=== PATIENT | male | born 1960 | race Caucasian/White ===

== ENCOUNTER 2021-03-01 00:31 | Inpatient (IN) | payer OTHER, SELFPAY ==
[~2021-03-01] VITALS: Ht 172.7 cm; Wt 98.1 kg
[2021-03-01] VITALS (20 sets, daily range): BP systolic 125–148; BP diastolic 60–106; O2SAT 87–98
[2021-03-01] MEDS ORDERED: MOM 30ML SUSPENSION UDC PO PRN (02:45)
[2021-03-01] MEDS ORDERED: ACETAMINOPHEN TAB 650MG DOSE (2X325MG) PO PRN (02:45)
[2021-03-01] MEDS ORDERED: MAALOX 30 ML SUSP *UDC PO PRN (02:45)
[2021-03-01] MEDS ORDERED: GLUCAGON INJ 1MG VIAL SC PRN (02:50)
[2021-03-01] MEDS ORDERED: GLUCOSE 4GM CHEW TABLET PO PRN (02:50)
[2021-03-01] MEDS ORDERED: DEXTROSE 50% 50 ML SYRINGE IV PRN (02:50)
[2021-03-01] MEDS ORDERED: guaiFENesin 200 MG TAB PO PRN (03:20)
[2021-03-01] MEDS ORDERED: METOPROLOL 5 MG/5 ML VIAL IV STA ×2 (03:23→03:28)
--- NOTE | 2021-03-01 03:28 | HPEPDOC ---
[facility] Medical History & Physical Date of Admission March 01, 2021 Date of Service: March 01, 2021 Attending Physician: FABRIZIO BARROW MD History and Physical CHIEF COMPLAINT: [60 y/o male cc of increasing sob x4-5 weeks] HISTORY OF PRESENT ILLNESS: [This is a 60 y/o male with a pmh of copd, unspecified CHF, dm2, gerd and htn who presented to [facility] with a cc of increasing sob x4-5 weeks. Patient states that his symptoms have come on gradually and have been becoming increasingly worse. Patient states that he has had several episodes of heart failure exacerbation in the past and has been admitted at outside hospitals. Patient states that his sob is worse with exertion as well as bending over. Patient states that he has noticed edema all the way up to his hips. Patient also complains of occasional chills, cough productive of clear sputum, occasional numbness of the legs, and occasional abdominal pain. At this time, patient denies fever, syncope, chest pain, palpitations, syncope, recent falls, dizziness, n/v/d/c, dysuria. Patient found to be tachycardic on arrival at our facility into the 140s. Telemetry rhythm strip as well as 12 lead EKG indicative of atrial flutter. Patient states that he has no history of this. At [place], patient received aspirin, lasix, solumedrol, duonebs for tx of his chf exacerbation with possible copd exacerbation. Patient also apparently received 5mg lopressor and 10mg cardizem for his tachycardia at [place] as well. ] PAST MEDICAL HISTORY: 1. [See HPI PAST SURGICAL HISTORY: 1. [Cholecystectomy]. 2. [Appendectomy]. SOCIAL HISTORY: Tobacco use:[Current pack per day smoker, smoked since he was "13 or 14"] ETOH: [Denies] Illicit drug use: [Denies] FAMILY HISTORY: Reviewed - non pertinent ALLERGIES: Please see below. REVIEW OF SYSTEMS: CONSTITUTIONAL: [See HPI]. HEENT: [Denies uri sx]. CARDIOVASCULAR: [Denies chest pain, palpitations]. RESPIRATORY: [See HPI]. GASTROINTESTINAL: [See HPI]. GENITOURINARY: [See HPI]. SKIN: [Denies rash]. MUSCULOSKELETAL: [Denies acute joint, back pain]. NEUROLOGICAL: [See HPI]. ENDOCRINE: [Hx of DM]. HEMATOLOGIC/LYMPHATIC: [Denies easy bruising]. HOME MEDICATIONS: Please see below. PHYSICAL EXAMINATION: VITAL SIGNS: Please see below. GENERAL APPEARANCE: [This is a 60 y/o male who appears his stated age. Patient is resting in bed and does not appear to be in respiratory distress.]. HEENT: [No mass or lesion. EOMI. No scleral icterus. Nares patent. Oral mucosa moist without erythema.]. CARDIOVASCULAR: [Tachy rate, regular rhythm. No murmurs, rubs, gallops]. LUNGS: [Crackles heard throughout. No wheezing. No accessory muscle use.]. ABDOMEN: [Soft, mildly tender to rlq over appendectomy scar with deep palpation]. MUSCULOSKELETAL: [No joint deformity]. EXTREMITIES: [B/l lower extremities grossly edematous up the thighs. No overlying skin changes. Negative alejandrina's sign. No calf tenderness. Pulses weak but palpable.]. NEUROLOGICAL: [Speech clear. A+Ox3. No focal deficit.]. PSYCHIATRIC: [Mood and affect appear appropriate.]. LABORATORY DATA: See below. IMAGING: [CXR: FINDINGS: Lungs: There is slight prominence of the interstitium. There is no significant consolidation. Pleural spaces: No pleural effusions or pneumothorax identified. Heart/Mediastinum: The heart is enlarged. Bones/joints: Unremarkable. IMPRESSION: 1. Cardiomegaly. 2. Slight prominence of the interstitium, possibly representing mild interstitial pulmonary edema. ] MICROBIOLOGY: Please see below. ASSESSMENT: [This is a 60 y/o male with a pmh of copd, unspecified CHF, dm2, gerd and htn who presented to [facility] with a cc of increasing sob x4-5 weeks. Patient transferred to us found to be in obvious fluid overload with new onset atrial flutter not rate controlled into the 140s.]. . PLAN: 1. [Acute CHF exacerbation - unclear type. patient obviously fluid overloaded on exam. bnp at [place] over 4000 - begin lasix 40mg iv q8h - monitor is and os - weigh daily - echo ordered - o2 therapy titrated to >90% as needed - continue lisinopril, coreg, asa - Admit to pcu with tele for tx 2. New onset atrial flutter - Patient states he has no history of rapid or irregular heart rate - atrial flutter confirmed on 12 lead ekg, rates in the 140s - will begin heparin for anticoagulation until we have obtained labs assessing kidney function. can switch to eliquis or other doac if kidneys are ok - Patient received 5 of lopressor and 10 of cardizem at [place] - will give lopressor iv for rate control for now - on tele, as stated 3. COPD - patient's symptoms do not appear to be related to acute copd exacerbation - patient given solumedrol, duonebs at [place] - patient does complain of phlegm, will give mucinex to help clearance - will continue at home inhalers, monitor o2 sats 4. DM2 - sliding scale insulin, hypoglycemic protocol 5. HTN - continue lisinopril and coreg 6. GERD - continue protonix DVT prophylaxis - Heparin pending kidney function ]. Vital Signs Vital Signs Date Time Temp Pulse Resp B/P (MAP) Pulse Ox O2 Delivery O2 Flow Rate FiO2 03/01/21 03:19 141 135/88 03/01/21 02:30 97.1 20 92 Nasal Cannula 3.0 Home Medications Scheduled Aspirin (Aspirin EC) 81 Mg Tablet.dr, 81 MG PO DAILY Carvedilol (Carvedilol) 25 Mg Tablet, 25 MG PO BID Lisinopril (Lisinopril) 20 Mg Tablet, 20 MG PO DAILY Metformin HCl (Metformin HCl) 500 Mg Tablet, 500 MG PO BID Nitroglycerin (Nitrostat) 0.4 Mg Tab.subl, 0.4 MG SL NITRO Pantoprazole Sodium (Pantoprazole Sodium) 40 Mg Tablet.dr, 40 MG PO DAILY Torsemide (Torsemide) 20 Mg Tablet, 20 MG PO DAILY Umeclidinium [employer] (Incruse Ellipta) 62.5 Mcg Blst.w.dev, 1 PUFF PO DAILY Scheduled PRN Albuterol Sulfate (Albuterol Sulfate Hfa) 8.5 Gm Hfa.aer.ad, 2 PUFFS PO Q4-6HP PRN for SHORTNESS OF BREATH Albuterol Sulfate (Albuterol Sulfate) 1.25 Mg/3 Ml Vial.neb, 1 VIAL NEB TID PRN for SHORTNESS OF BREATH Allergies Coded Allergies: No Known Allergies (Verified Allergy, Unknown, 03/01/21) A-FIB/CHADSVASC A-FIB History Current/History of A-Fib/PAF?: Yes Current PO Anticoag Therapy: No (heparin) MARNI AVILES March 01, 2021 03:28
[2021-03-01] MEDS ORDERED: TORS20TA2 PO (03:30)
[2021-03-01] MEDS ORDERED: ALBU8.5H PO (03:30)
[2021-03-01] MEDS ORDERED: CARV25TA PO (03:30)
[2021-03-01] MEDS ORDERED: INCR1INH PO (03:30)
[2021-03-01] MEDS ORDERED: LISI20TA33 PO (03:30)
[2021-03-01] MEDS ORDERED: NITR4TASL SL (03:30)
[2021-03-01] MEDS ORDERED: ASPI81TA26 PO (03:30)
[2021-03-01] MEDS ORDERED: PANT40TA29 PO (03:30)
[2021-03-01] MEDS ORDERED: METF500T13 PO (03:30)
[2021-03-01] MEDS ORDERED: ALBU1.25 NEB (03:50)
[2021-03-01] MEDS ORDERED: ALBUTEROL 90 MCG/ACT 8GM HFA INHALER INH PRN (03:55)
[2021-03-01] MEDS ORDERED: ALBUTEROL SULFATE 2.5 MG/0.5 ML INH NEB SOLN NEB PRN (03:55)
[2021-03-01] MEDS ORDERED: NITROGLYCERIN 0.4 MG SUBL TABLET SL PRN (03:55)
--- NOTE | 2021-03-01 04:06 | REPVR ---
PROCEDURE INFORMATION: Exam: XR Chest Exam date and time: 03/01/2021 3:28 AM Age: 60 years old Clinical indication: Other: Chf TECHNIQUE: Imaging protocol: XR of the chest. Views: 1 view. COMPARISON: No relevant prior studies available. FINDINGS: Lungs: There is slight prominence of the interstitium. There is no significant consolidation. Pleural spaces: No pleural effusions or pneumothorax identified. Heart/Mediastinum: The heart is enlarged. Bones/joints: Unremarkable. IMPRESSION: 1. Cardiomegaly. 2. Slight prominence of the interstitium, possibly representing mild interstitial pulmonary edema. Electronically signed by: Jaja Ashley On 03/01/2021 04:05:16 AM
[2021-03-01] MEDS ORDERED: CARVedilol 12.5 MG TAB PO ONE (04:15)
[2021-03-01 04:22] LABS: INR 1.01; PROTHROMBIN TIME 13.5 SECONDS (12.5-14.3)
[2021-03-01 04:34] LABS: HEMATOCRIT 49.6 % (42.0-52.0); HEMOGLOBIN 13.3 g/dl (13.5-17.5); MEAN CORPUSCULAR HEMOGLOBIN 22.1 pg (27.0-33.0); MEAN CORPUSCULAR HGB CONC 26.8 g/dl (32.0-36.5); MEAN CORPUSCULAR VOLUME 82.3 fl (80.0-96.0); PLATELET COUNT, AUTOMATED 225 10^3/uL (150-450); RED BLOOD COUNT 6.03 10^6/uL (4.30-6.10); WHITE BLOOD COUNT 7.9 10^3/uL (4.0-10.0)
[2021-03-01] MEDS ORDERED: DIGOXIN INJ 0.5 MG/2 ML AMP (J1160) IV ONE (04:45)
[2021-03-01 04:46] LABS: ALT/SGPT 29 U/L (12-78); BILIRUBIN,TOTAL 0.6 MG/DL (0.2-1.0); BLOOD UREA NITROGEN 19 MG/DL (7-18); CALCIUM LEVEL 8.2 MG/DL (8.8-10.2); CARBON DIOXIDE LEVEL 40 MEQ/L (21-32); CHLORIDE LEVEL 97 MEQ/L (98-107); CK-MB VALUE MASS 3.5 NG/ML (<3.6); CPK CREATINE PHOSPHOKINASE 72 U/L (39-308); CREATININE FOR GFR 1.22 MG/DL (0.70-1.30); GLOMERULAR FILTRATION RATE > 60.0 (>49); GLUCOSE, FASTING 264 MG/DL (70-100); MB/CK RELATIVE INDEX 4.86 (< OR =4); POTASSIUM SERUM 4.6 MEQ/L (3.5-5.1); SODIUM LEVEL 139 MEQ/L (136-145); TOTAL PROTEIN 7.1 GM/DL (6.4-8.2); TROPONIN I 0.04 NG/ML (< 0.10)
[2021-03-01] MEDS ORDERED: APIXABAN 5 MG TAB (ELIQUIS) PO SCH (05:30)
[2021-03-01] MEDS ORDERED: APIXABAN 5 MG TAB (ELIQUIS) PO ONE (05:30)
[2021-03-01] MEDS ORDERED: HEPARIN SOD (PORCINE) 5000UNITS/ML 1ML VIAL/SYRINGE SC SCH (06:00)
--- NOTE | 2021-03-01 06:16 | REPVR ---
PROCEDURE INFORMATION: Exam: US Duplex Lower Extremity Veins, Bilateral Exam date and time: 03/01/2021 5:59 AM Age: 60 years old Clinical indication: Edema, localized; Lower extremity, bilateral TECHNIQUE: Imaging protocol: Real-time duplex ultrasound of the extremities with 2-D kay scale, color Doppler flow and spectral waveform analysis with image documentation. Complete exam focused on the bilateral lower extremity veins. COMPARISON: No relevant prior studies available. FINDINGS: Limitations: Examination is limited by body habitus. Right deep veins: Unremarkable. The common femoral, femoral, proximal profunda femoral and popliteal veins are patent without thrombus. Normal Doppler waveforms. Normal compressibility and/or augmentation response. Right superficial veins: Saphenofemoral junction is patent without thrombus. The calf veins were not well visualized due to edema and body habitus. Patent posterior tibial and anterior tibial veins were visualized distally. Left deep veins: Unremarkable. The common femoral, femoral, proximal profunda femoral and popliteal veins are patent without thrombus. Normal Doppler waveforms. Normal compressibility and/or augmentation response. Left superficial veins: Saphenofemoral junction is patent without thrombus. The calf veins were not well visualized due to edema and body habitus. Patent posterior tibial and anterior tibial veins were visualized distally. Soft tissues: There is a Downey's cyst in the left popliteal fossa measuring 2.4 x 0.7 x 1.5 cm. There is diffuse edema bilaterally. IMPRESSION: No evidence of deep venous thrombosis in the bilateral lower extremities. Electronically signed by: Jaja Ashley On 03/01/2021 06:16:12 AM
[2021-03-01] MEDS: FUROSEMIDE 40MG/4ML VIAL (J1940) IV SCH ×3 (06:19→21:07)
[2021-03-01] MEDS: ASPIRIN 81MG ENTERIC TABLET PO SCH (08:48)
[2021-03-01] MEDS: DOCUSATE SODIUM 100MG CAPSULE PO SCH ×2 (08:48→21:07)
[2021-03-01] MEDS: PANTOPRAZOLE 40MG TAB (PROTONIX) PO SCH (08:48)
[2021-03-01] MEDS: HumaLOG INSULIN (NovoLOG) PER UNIT SC SCH ×3 (08:49→17:26)
[2021-03-01 14:51] LABS: MAGNESIUM LEVEL 2.1 MG/DL (1.8-2.4)
[2021-03-01 16:09] LABS: HEMOGLOBIN A1c 6.3 %
--- NOTE | 2021-03-01 20:41 | IPNPDOC ---
Date Seen The patient was seen on 03/01/21. Progress Note SUBJECTIVE: Patient is a 60-year-old male with a history of unspecified CHF, COPD, Type 2 DM, GERD, and HTN who was transferred to this hospital last night from the [place] ED due to increasing SOB for the past 4-5 weeks. This is hospital day #1. Pt reports ongoing SOB with exertion. He is on telemetry and had one PVC, with no overnight events. The pt denies fevers, chills, night sweats, syncope, or heart palpitations. He does report that he had a small episode of chest pain that lasted approximately 2 minutes when he got up to go to the restroom this morning. However, it subsided without medical intervention. 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 Pt denies any h istory of heart attack. The nursing staff reports that the patient's high glucose level may be attr ibuted to the chocolate candy he has in the bedside drawer. OBJECTIVE PHYSICAL EXAMINATION: VITAL SIGNS: Please see below. GENERAL: NAD, alert and oriented x3, appears older than stated age HEENT: dental caries present, oral mucosa moist, wearing eyeglasses, non- injected anicteric sclerae Neck: +hepatojugular reflex, trachea midline CARDIOVASCULAR: RRR, no murmurs, rubs, rhonchi RESPIRATORY: bibasilar crackles, dullness to percussion up to mid thorax on right posterior lung field, dullness to percussion on left lower lung field ABDOMINAL: soft, nontender, +BS EXTREMITIES: bilateral pitting edema, pedal up to sacrum and flanks, clubbing NEUROLOGICAL: good tone, able to ambulate to and from restroom on his own, alert and oriented x3 PSYCHOLOGICAL: cooperative during exam LABORATORY DATA, IMAGING STUDIES, MICROBIOLOGY: Please see below. DVT prophylaxis ordered: Apixaban 5mg BID ASSESSMENT AND PLAN: This is a 60-year-old male with history of COPD, Type II DM, GERD, HTN who presents with acute hypoxic respiratory failure and fluid overload 2/2 acute exacerbation of CHF. Pt also had new-onset of atrial flutter on admission from ED [place]. PROBLEMS: #Decompensated Heart Failure with h/o CHF, likely systolic heart failure -Pt denies history of ischemic heart disease, current literature states that COPD is an independent risk factor for heart failure. -findings on exam c/w fluid overload: +HJR, 2+ pitting edema, wet crackles- bibasilar -Echocardiogram was recently done in [place]. Pt consent for release of records obtained. Pending review of these results. -Pt placed on 1500mL oral liquid intake -continue Lisinopril 20 mg daily, carvedilol 25mg BID home medications continued -continue Furosemide 40 mg TID -continue Nitroglycerin 0.4mg PRN -2g sodium diet implemented -order placed to elevate legs. #Atrial flutter, new-onset -continue telemetry -converted back to sinus rhythm at 0515 on 03/01/21. -continue Apixaban 5 mg BID -will consider Cardizem 30mg q6h should pt become tachycardic again -continued home Carvedilol dosing -of note, pt received 5 mg Lopressor and 10 mg Cardizem at [place], continued to be in atrial flutter upon transfer to [facility], subsequently given 5 mg Lopressor IV x 2, and 0.5 mg digoxin x1. -CHADSVasc: 3 #Type II DM -HbA1c: 6.3 -Start Levemir 4mg BID -Continue SSI AC,HS #COPD, oxygen-dependent -continuous 2L at home, he was titrated down to 2 L today from 3L, oxygen titration orders are 88-92% as patient does not appear to be in COPD ex acerbation. -continue albuterol inhaler and nebulizer as needed -Guiafenicin 200mg Q8Hprn #HTN -continue home lisinopril and carvedilol #GERD -continue protonix 40 mg daily DVT prophylaxis: receiving Eliquis in setting of new-onset atrial flutter DISPOSITION: pending improved fluid status from HF and continued monitoring of rate-controlled rhythm. VS, I&O, 24H, Fishbone Vital Signs/I&O Vital Signs Date Time Temp Pulse Resp B/P (MAP) Pulse Ox O2 Delivery O2 Flow Rate FiO2 03/01/21 17:00 93 Nasal Cannula 2.0 03/01/21 16:00 97.1 68 16 127/62 (83) I&O- Last 24 Hours up to 6 AM 03/01/21 06:00 Intake Total 240 ml Output Total 650 ml Balance -410 ml Laboratory Data 24H LABS Laboratory Tests 2 03/01/21 04:04: Nucleated Red Blood Cells % (auto) 0.0 03/01/21 04:06: Prothrombin Time 13.5, Prothromb Time International Ratio 1.01, Anion Gap 2L, Glomerular Filtration Rate > 60.0, Calcium Level 8.2L, Magnesium Level 2.1, Total Bilirubin 0.6, Aspartate Amino Transf (AST/SGOT) 21, Alanine Aminotransferase (ALT/SGPT) 29, Alkaline Phosphatase 135H, Total Creatine Kinase 72, Creatine Kinase MB 3.5, Creatine Kinase MB Relative Index 4.86H, Troponin I 0.04, Total Protein 7.1, Albumin 3.0L, Albumin/Globulin Ratio 0.7 03/01/21 12:03: Bedside Glucose (Misc Panel) 227H 03/01/21 14:28: Estimated Mean Plasma Glucose 134H, Hemoglobin A1c 6.3 03/01/21 17:02: Bedside Glucose (Misc Panel) 285H CBC/BMP Laboratory Tests 03/01/21 04:04 03/01/21 04:06 GME ATTESTATION My faculty preceptor for this patient encounter was physically present during the encounter and was fully available. All aspects of the patient interview, examination, medical decision making process, and medical care plan development were reviewed and approved by the faculty preceptor. The faculty preceptor is aware and concurs with the plan as stated in the body of this note and will attest to such by his/her cosignature. Christiano Salazar DO March 01, 2021 20:41
[2021-03-01] MEDS: LEVEMIR (INSULIN DETEMIR) 1 UNITS/0.01ML SC SCH ×2 (21:00→21:06)
[2021-03-01] MEDS ORDERED: HumaLOG INSULIN (NovoLOG) PER UNIT SC SCH (21:00)
[2021-03-01] MEDS: CARVedilol 12.5 MG TAB PO SCH (21:07)
[2021-03-01] MEDS: APIXABAN 5 MG TAB (ELIQUIS) PO SCH (21:07)
[2021-03-02] VITALS (7 sets, daily range): BP systolic 116–129; BP diastolic 56–61; O2SAT 93–96
[2021-03-02] MEDS: FUROSEMIDE 40MG/4ML VIAL (J1940) IV SCH (04:59)
[2021-03-02 05:48] LABS: HEMATOCRIT 46.1 % (42.0-52.0); HEMOGLOBIN 12.5 g/dl (13.5-17.5); MEAN CORPUSCULAR HGB CONC 27.1 g/dl (32.0-36.5); MEAN CORPUSCULAR VOLUME 81.3 fl (80.0-96.0); PLATELET COUNT, AUTOMATED 265 10^3/uL (150-450); RED BLOOD COUNT 5.67 10^6/uL (4.30-6.10)
[2021-03-02 06:10] LABS: BLOOD UREA NITROGEN 27 MG/DL (7-18); CALCIUM LEVEL 8.6 MG/DL (8.8-10.2); CARBON DIOXIDE LEVEL 44 MEQ/L (21-32); CHLORIDE LEVEL 91 MEQ/L (98-107); CREATININE FOR GFR 1.15 MG/DL (0.70-1.30); GLOMERULAR FILTRATION RATE > 60.0 (>49); GLUCOSE, FASTING 152 MG/DL (70-100); MAGNESIUM LEVEL 2.1 MG/DL (1.8-2.4); SODIUM LEVEL 135 MEQ/L (136-145)
[2021-03-02 08:35] LABS: BASO % 0.2 % (0.0-1.0); EOS # 0.1 10^3/uL (0.0-0.5); EOS % 0.4 % (0.0-3.0); LYMPH # 1.1 10^3/uL (1.5-5.0); LYMPH % 6.8 % (24.0-44.0); MONO % 9.5 % (2.0-8.0); NEUTROPHILS # 13.5 10^3/uL (1.5-8.5); NEUTROPHILS % 82.4 % (36.0-66.0)
[2021-03-02 08:36] LABS: MONO # 1.6 10^3/uL (0.0-0.8); WHITE BLOOD COUNT 15.9 10^3/uL (4.0-10.0)
[2021-03-02] MEDS: HumaLOG INSULIN (NovoLOG) PER UNIT SC SCH (08:39)
[2021-03-02] MEDS: ASPIRIN 81MG ENTERIC TABLET PO SCH (08:40)
[2021-03-02] MEDS: APIXABAN 5 MG TAB (ELIQUIS) PO SCH (08:40)
[2021-03-02] MEDS: CARVedilol 12.5 MG TAB PO SCH (08:40)
[2021-03-02] MEDS: DOCUSATE SODIUM 100MG CAPSULE PO SCH (08:40)
[2021-03-02] MEDS: PANTOPRAZOLE 40MG TAB (PROTONIX) PO SCH (08:40)
[2021-03-02] MEDS: LEVEMIR (INSULIN DETEMIR) 1 UNITS/0.01ML SC SCH (08:41)
[2021-03-02] MEDS ORDERED: ELIQ5TAB PO (20:12)
--- NOTE | 2021-03-02 20:15 | DS.PDOC ---
Discharge Summary General Date of Admission March 01, 2021 at 02:08 Date of Discharge 03/02/2021 Attending Physician: CAMELIA CORBETT MD Discharge Summary PROCEDURES PERFORMED DURING STAY: None. ADMITTING DIAGNOSES: 1. Acute CHF exacerbation secondary to unspecified type of heart failure. DISCHARGE DIAGNOSES: 1. Acute congestive heart failure exacerbation secondary to likely systolic heart failure. COMPLICATIONS/CHIEF COMPLAINT: Acute Hypoxic Resp Failure, Chf Exacerbation, Copd. HISTORY OF PRESENT ILLNESS:. Patient is a 60-year-old male with a past medical history of COPD, unspecified. The at bedtime, 2 diabetes mellitus, GERD and hypertension who presented to the [place] emergency room and was transferred here due to being on diversion. Patient complained of gradually increasing shortness of breath over the course of 4-5 weeks on exertion. Patient reported several episodes of heart failure exacerbation requiring hospitalization at multiple hospitals in the past. Patient stated that he has noticed edema all the way up to his hips. Patient reported occasional chills, productive cough with clear sputum, occasional numbness of the legs, and occasional abdominal pain. Patient denied fever, syncope, chest pain, palpitations, recent falls, dizziness, nausea, vomiting, diarrhea, constipation, and dysuria. She was found to be tachycardic on arrival at [facility] with a heart rate in the 140s. Telemetry rhythm strip as well as 12-lead EKG indicated atrial flutter. Patient reported no history of this diagnosis. At [place], patient received aspirin, Lasix, Solu-Medrol, DuoNeb's for treatment of his CHF exacerbation with possible COPD exacerbation. She also apparently received 5 mg, Lopressor and 10 mg Cardizem for his tachycardia [place] as well. HOSPITAL COURSE: Patient required an additional 2 doses of 5 mg IV Lopressor and 0.5 mg digoxin. Patient's rhythm returned to returned back to sinus rhythm at 0515 on 03/01/2021. Vascular ultrasound did not show any evidence of DVTs, left popliteal Downey's cyst was appreciated. Legs were elevated and patient was placed on 2 g sodium restricted diet as well as 1500 mL oral fluid intake restriction. Echocardiogram results were requested from [place] and patient consent for release of records was obtained. Patient maintained 2+ pitting edema from feet up to hips during the entire stay. Patient also had bibasilar wet crackles and significant signs of fluid overload including positive hepatojugular reflex. On 03/01/2021. Nursing staff reported to us that the patient was eating chocolates that he probably home and kept in bedside drawer. These were confiscated after counseling about importance of appropriate glucose control was discussed with the patient and patient agreed for this. 40 mg of furosemide TID was administered to treat fluid overload (patient home medication per diuretic is torsemide 20 mg.) Patient was started on 5 mg twice a day. Home medications lisinopril 20 mg daily and carvedilol 25 mg twice a day were continued. The patient did not require nitroglycerin 0.4 mg (home medication and ministered as needed) during his stay. Patient's blood glucose was not well maintained on sliding scale insulin likely secondary to patient eating chocolates that he probably home, therefore, Levemir 4 mg twice a day was started. Patient was given 2 L continuous oxygen therapy during stay due to oxygen dependency secondary to his COPD. Guaifenesin 200 mg every 8 hours when necessary was also administered due to productive sputum. She was also administered albuterol inhaler and nebulizer. Protonix 40 mg daily was administered daily, since patient has a history of GERD. DISCHARGE MEDICATIONS: Please see below. ALLERGIES: Please see below. PHYSICAL EXAMINATION ON DISCHARGE: VITAL SIGNS: Please see below. GENERAL: Significantly limited by patient's insistence on leaving AMA and resulting refusal to cooperate CARDIOVASCULAR EXAMINATION: Regular rate and rhythm, no murmurs, rubs or gallops RESPIRATORY EXAMINATION: Diffuse crackles appreciated in all lung ramirez, dullness on percussion in by basilar lung ramirez EXTREMITIES: +2 pitting edema SKIN: Papules and macules appreciated on the patient's back without pruritus PSYCHIATRIC EXAMINATION: Not cooperative during exam today LABORATORY DATA: Please see below. IMAGING: Vascular Ultrasound-03/01/2021:No evidence of deep venous thrombosis in the bilateral lower extremities. There is a Downey's cyst in the left popliteal fossa measuring 2.4 x 0.7 x 1.5 cm. There is diffuse edema bilaterally. Chest yejdiuvbts39/31/2021: Cardiomegaly with slight prominence of the interstitium, possibly representing mild interstitial pulmonary edema. PROGNOSIS: Poor ACTIVITY: As tolerated. DIET: Consistent carbohydrate diet DISPOSITION: 07 Against Medical Advice. DISCHARGE INSTRUCTIONS: Patient left AMA, however, was prescribed a pig Gavi 5 mg twice a day for 30 days. DISCHARGE CONDITION: Unstable. TIME SPENT ON DISCHARGE: Patient left AMA. Vital Signs/I&Os Vital Signs Date Time Temp Pulse Resp B/P (MAP) Pulse Ox O2 Delivery O2 Flow Rate FiO2 03/02/21 08:40 116/56 03/02/21 08:40 63 03/02/21 08:00 2.0 03/02/21 08:00 97.7 18 97 Room Air I&O- Last 24 Hours up to 6 AM 03/02/21 06:00 Intake Total 1980 ml Output Total 4900 ml Balance -2920 ml Laboratory Data Labs 24H Laboratory Tests 2 03/01/21 20:38: Bedside Glucose (Misc Panel) 177H 03/02/21 05:24: Immature Granulocyte % (Auto) 0.7, Neutrophils (%) (Auto) 82.4H, Lymphocytes (%) (Auto) 6.8L, Monocytes (%) (Auto) 9.5H, Eosinophils (%) (Auto) 0.4, Basophils (%) (Auto) 0.2, Neutrophils # (Auto) 13.5H, Lymphocytes # (Auto) 1.1L, Monocytes # (Auto) 1.6H, Eosinophils # (Auto) 0.1, Basophils # (Auto) 0.0, Immature Granulocyte # (Auto) 0.1H, Nucleated Red Blood Cells % (auto) 0.0, Platelet Estimate , Anion Gap 0L, Glomerular Filtration Rate > 60.0, Calcium Level 8.6L, Magnesium Level 2.1 03/02/21 07:13: Bedside Glucose (Misc Panel) 119H CBC/BMP Laboratory Tests 03/02/21 05:24 FSBS Laboratory Tests Test 03/01/21 20:38 03/02/21 07:13 Range/Units Bedside Glucose (Misc Panel) 177 119 80-115 MG/DL Discharge Medications Scheduled Aspirin (Aspirin EC) 81 Mg Tablet.dr, 81 MG PO DAILY, (Reported) Carvedilol (Carvedilol) 25 Mg Tablet, 25 MG PO BID, (Reported) Lisinopril (Lisinopril) 20 Mg Tablet, 20 MG PO DAILY, (Reported) Metformin HCl (Metformin HCl) 500 Mg Tablet, 500 MG PO BID, (Reported) Nitroglycerin (Nitrostat) 0.4 Mg Tab.subl, 0.4 MG SL NITRO, (Reported) Pantoprazole Sodium (Pantoprazole Sodium) 40 Mg Tablet.dr, 40 MG PO DAILY, (Reported) Torsemide (Torsemide) 20 Mg Tablet, 20 MG PO DAILY, (Reported) Umeclidinium [employer] (Incruse Ellipta) 62.5 Mcg Blst.w.dev, 1 PUFF PO DAILY, (Reported) Scheduled PRN Albuterol Sulfate (Albuterol Sulfate Hfa) 8.5 Gm Hfa.aer.ad, 2 PUFFS PO Q4-6HP PRN for SHORTNESS OF BREATH, (Reported) Albuterol Sulfate (Albuterol Sulfate) 1.25 Mg/3 Ml Vial.neb, 1 VIAL NEB TID PRN for SHORTNESS OF BREATH, (Reported) Allergies Coded Allergies: No Known Allergies (Verified Allergy, Unknown, 03/01/21) GME ATTESTATION My faculty preceptor for this patient encounter was physically present during the encounter and was fully available. All aspects of the patient interview, examination, medical decision making process, and medical care plan development were reviewed and approved by the faculty preceptor. The faculty preceptor is aware and concurs with the plan as stated in the body of this note and will attest to such by his/her cosignature. Christiano Salazar DO Mar 02, 2021 20:15
== END 2021-03-02 10:00 | disposition left against medical advice (07) | DRG 194 ==
LOC: M PCU 02:08
PROVIDERS: ADMIT Family Medicine; ATTEND Internal Medicine
DX: I11.0 Hypertensive heart disease with heart failure (principal); I48.92 Unspecified atrial flutter; Z99.81 Dependence on supplemental oxygen; J44.9 Chronic obstructive pulmonary disease, unspecified; E11.9 Type 2 diabetes mellitus without complications; K21.9 Gastro-esophageal reflux disease without esophagitis; Z90.49 Acquired absence of other specified parts of digestive tract; F17.200 Nicotine dependence, unspecified, uncomplicated; Z79.82 Long term (current) use of aspirin; Z79.84 Long term (current) use of oral hypoglycemic drugs; Z79.899 Other long term (current) drug therapy; I50.23 Acute on chronic systolic (congestive) heart failure

== ENCOUNTER → 2022-03-11 | Outpatient (REF) | payer OTHER ==
[~2022-03-11] MED LIST: ALBU1.25 NEB; ALBU8.5H PO; ASPI81TA26 PO; CARV25TA PO; ELIQ5TAB PO; ENTR1TAB7 PO; FERR324T2 PO; FINA5TAB2 PO; INCR1INH PO; LISI20TA33 PO; METF500T13 PO; METO200T28 PO; NITR4TASL SL; PANT40TA29 PO; TORS20TA2 PO
== END ==
LOC: M SMT 16:46
PROVIDERS: ATTEND Urology
DX: R33.9 Retention of urine, unspecified (principal)